=== PATIENT | male | born 1990 | race Caucasian/White ===

== ENCOUNTER 2018-08-24 10:25 | Emergency (ER) | payer BC, SELFPAY ==
[2018-08-24 11:37] LABS: Urine Blood NEGATIVE (NEG); Urine Glucose NEGATIVE (NEG); Urine Protein NEGATIVE (NEG); Urine Specific Gravity 1.025 (1.005-1.030)
--- NOTE | 2018-08-24 12:05 | RAD REPORT ---
EXAM DESCRIPTION: US - Abdomen Exam Limited - 08/24/2018 11:49 am CLINICAL HISTORY: ABD PAIN COMPARISON: ABDOMINAL EXAM COMPLETE dated 07/20/2014 FINDINGS: The gallbladder demonstrates no gallstones. No pericholecystic fluid or gallbladder wall t hickening. The common bile duct is normal measuring 3 mm. The liver demonstrates no findings of intrahepatic biliary dilatation. IMPRESSION: Unremarkable examination.
[2018-08-24] MEDS ORDERED: KETOROLAC 30 MG/ML INJ ONE (13:08)
[2018-08-24] MEDS ORDERED: NA CHLORIDE 0.9% 1,000 ML ONE (13:08)
[2018-08-24 13:18] LABS: Absolute Lymphocytes (CBC) 1.2 K/uL (0.7-4.9); Absolute Monocytes 0.8 K/uL (0.1-1.3); Absolute Neutrophil 2.4 K/uL (1.8-8.0); Basophils % 0.6 % (0-1.3); Eosinophils % 3.4 % (0-4.4); Hematocrit 44.4 % (39.6-49.0); Lymphocytes % 26.8 % (15.3-44.8); MCV 87.3 fL (80-100); MPV 8.9 fL (7.6-11.3); Monocytes % 16.8 % (3.3-12.3); RBC Red Blood Cell Count 5.09 M/uL (4.33-5.43)
[2018-08-24 13:25] LABS: Albumin 3.4 g/dL (3.4-5.0); Bilirubin Direct 0.1 mg/dL (0-0.2); Bilirubin Total 0.3 mg/dL (0.2-1.0); Potassium 4.2 mmol/L (3.5-5.1)
[2018-08-24] MEDS ORDERED: DICYCLOMINE HCL 10 MG CAP ONE (13:57)
[2018-08-24] MEDS ORDERED: PANTOPRAZOLE 40 MG INJ ONE (13:58)
[2018-08-24 14:07] LABS: Urine White Blood Cell Casts OK
[2018-08-24 14:08] LABS: Blood Morphology Comment NOT SEEN (NOT SEEN); Platelet Estimate ADEQ
--- NOTE | 2018-08-24 14:22 | ER ---
Nurse's Notes [facility] Name: Robbie Dc Age: 28 yrs Sex: Male : 1990 Arrival Date: 08/24/2018 Time: 10:30 Bed 23 Private MD: Diagnosis: Upper abdominal pain, unspecified;Diarrhea, unspecified Presentation: 08/24 10:43 Presenting complaint: Patient states: "We got back from [place] a couple weeks ago. A aj1 few of us have gotten really bad diarrhea, that's been going on for the past 3 days. I'm having severe stomach cramps." Reports epigastric pain that is worse after he eats. Reports fever, Tmax 101. Transition of care: patient was not received from another setting of care. Onset of symptoms was August 21, 2018. Risk Assessment: Do you want to hurt yourself or someone else? Patient reports no desire to harm self or others. Initial Sepsis Screen: Does the patient meet any 2 criteria? No. Patient's initial sepsis screen is negative. Does the patient have a suspected source of infection? No. Patient's initial sepsis screen is negative. Care prior to arrival: None. 10:43 Method Of Arrival: Ambulatory aj1 10:43 Acuity: SALLY 3 aj1 Triage Assessment: 10:45 General: Appears in no apparent distress. uncomfortable, Behavior is calm, cooperative, aj1 appropriate for age. Pain: Complains of pain in epigastric area Pain radiates to abdomen diffusely Pain currently is 3 out of 10 on a pain scale. at worst was 7 out of 10 on a pain scale. Neuro: Level of Consciousness is awake, alert, obeys commands. Cardiovascular: Patient's skin is warm and dry. Respiratory: Airway is patent Respiratory effort is even, unlabored, Respiratory pattern is regular, symmetrical. GI: Reports diarrhea, nausea, Patient currently denies vomiting. Historical: - Allergies: 10:45 No Known Allergies; aj1 - Home Meds: 10:45 Protonix Oral [Active]; Bentyl Oral [Active]; aj1 - PMHx: 10:45 None; aj1 - PSHx: 10:45 Appendectomy; aj1 - Immunization history:: Adult Immunizations unknown. - Social history:: Smoking status: Patient/guardian denies using tobacco. - Ebola Screening: : No symptoms or risks identified at this time. Screenin:00 Abuse screen: Denies threats or abuse. Denies injuries from another. Nutritional kr2 screening: No deficits noted. Tuberculosis screening: No symptoms or risk factors identified. Fall Risk None identified. Assessment: 12:45 General: Appears in no apparent distress. comfortable, Behavior is calm, cooperative, ss Reports fatigue for Denies fever, fatigue. Pain: Complains of pain in epigastric area Pain currently is 5 out of 10 on a pain scale. Neuro: Level of Consciousness is awake, alert, obeys commands, Oriented to person, place, time, situation. Cardiovascular: Heart tones S1 S2 present Capillary refill < 3 seconds is brisk in bilateral fingers Patient's skin is warm and dry. Respiratory: Airway is patent Respiratory effort is even, unlabored, Respiratory pattern is regular, symmetrical. GI: Bowel sounds present X 4 quads. Abd is soft and non tender X 4 quads. Reports diarrhea, since x 3 days. : No signs and/or symptoms were reported regarding the genitourinary system. EENT: Nares are clear Oral mucosa is moist. Derm: Skin is intact, is healthy with good turgor, Skin is dry, Skin is pink, warm \\T\\ dry. normal. 13:43 Reassessment: Patient appears in no apparent distress at this time. Patient and/or kr2 family updated on plan of care and expected duration. Pain level reassessed. Patient is alert, oriented x 3, equal unlabored respirations, skin warm/dry/pink. Complaining of abdominal cramping, provider at bedside. 14:06 Reassessment: Patient appears in no apparent distress at this time. Patient and/or kr2 family updated on plan of care and expected duration. Pain level reassessed. Patient is alert, oriented x 3, equal unlabored respirations, skin warm/dry/pink. Patient states symptoms have improved. Vital Signs: 10:45 BP 122 / 74; Pulse 71; Resp 18; Temp 99.2(TE); Pulse Ox 100% on R/A; Weight 97.52 kg aj1 (R); Height 5 ft. 11 in. (180.34 cm) (R); Pain 3/10; 14:00 BP 120 / 70; Pulse 70; Resp 17; Pulse Ox 99% on R/A; kr2 10:45 Body Mass Index 29.99 (97.52 kg, 180.34 cm) aj1 ED Course: 10:30 Patient arrived in ED. as 10:44 Triage completed. aj1 10:45 Arm band placed on Patient placed in waiting room, Patient notified of wait time. aj1 11:24 Mellisa Sellers [facility]-C [facility]. kb 11:24 Srikanth Siddiqi MD is Attending Physician. kb 11:50 US Abdomen Limited In Process Unspecified. EDMS 13:00 Patient has correct armband on for positive identification. Bed in low position. Call kr2 light in reach. Side rails up X 1. Pulse ox on. NIBP on. Door closed. Head of bed elevated. 13:43 Catalina Reza, RN is Primary Nurse. kr2 14:38 No provider procedures requiring assistance completed. IV discontinued, intact, kr2 bleeding controlled, No redness/swelling at site. Pressure dressing applied. Administered Medications: 13:05 Drug: TORadol 30 mg Route: IVP; Site: right antecubital; kr2 13:42 Follow up: Response: No adverse reaction; Pain is decreased kr2 13:06 Drug: NS 0.9% 1000 ml Route: IV; Rate: 1000 ml; Site: right antecubital; kr2 14:30 Follow up: Response: No adverse reaction; IV Status: Completed infusion kr2 13:54 Drug: ProTONIX 40 mg Route: IVP; Site: right antecubital; kr2 14:36 Follow up: Response: No adverse reaction; Pain is decreased kr2 13:55 Drug: Bentyl 20 mg Route: PO; kr2 14:37 Follow up: Response: No adverse reaction; Pain is decreased kr2 Outcome: 14:22 Discharge ordered by . kb 14:38 Discharged to home ambulatory. kr2 14:38 Condition: good 14:38 Discharge instructions given to patient, Instructed on discharge instructions, follow up and referral plans. medication usage, Demonstrated understanding of instructions, follow-up care, medications, Prescriptions given X 1. 14:41 Patient left the ED. kr2 Signatures: Dispatcher [employer] EDMS Mellisa Sellers FNP-C FNP-Ckb Johnson, Angela, RN RN aj1 Maritza Bustos Shelby, RN RN Catalina Reza RN RN kr2
--- NOTE | 2018-08-24 14:22 | EDPHYS ---
Physician Documentation [facility] Name: Robbie Dc Age: 28 yrs Sex: Male : 1990 Arrival Date: 08/24/2018 Time: 10:30 Bed 23 Private MD: ED Physician Srikanth Siddiqi HPI: 08/24 14:20 This 28 yrs old Male presents to ER via Ambulatory with complaints of kb Abdominal Pain. 14:20 The patient presents with abdominal pain in the epigastric area. Onset: The kb symptoms/episode began/occurred 4 day(s) ago. The symptoms do not radiate. Associated signs and symptoms: Pertinent positives: diarrhea, Pertinent negatives: nausea and vomiting. The symptoms are described as crampy. Modifying factors: The symptoms are alleviated by nothing, the symptoms are aggravated by nothing. Severity of pain: At its worst the pain was moderate in the emergency department the pain is unchanged. The patient has not experienced similar symptoms in the past. The patient has not recently seen a physician. Pt states he got back from [place] 6 days ago, started having diarrhea and abd pain for 4 days.. Historical: - Allergies: 10:45 No Known Allergies; aj1 - Home Meds: 10:45 Protonix Oral [Active]; Bentyl Oral [Active]; aj1 - PMHx: 10:45 None; aj1 - PSHx: 10:45 Appendectomy; aj1 - Immunization history:: Adult Immunizations unknown. - Social history:: Smoking status: Patient/guardian denies using tobacco. - Ebola Screening: : No symptoms or risks identified at this time. ROS: 14:19 Constitutional: Negative for fever, chills, and weight loss, Cardiovascular: Negative kb for chest pain, palpitations, and edema, Respiratory: Negative for shortness of breath, cough, wheezing, and pleuritic chest pain, Back: Negative for injury and pain, : Negative for injury, bleeding, discharge, and swelling, MS/Extremity: Negative for injury and deformity, Skin: Negative for injury, rash, and discoloration, Neuro: Negative for headache, weakness, numbness, tingling, and seizure. 14:19 Abdomen/GI: Positive for abdominal pain, diarrhea, Negative for nausea, vomiting, constipation. Exam: 14:18 Constitutional: This is a well developed, well nourished patient who is awake, alert, kb and in no acute distress. Head/Face: Normocephalic, atraumatic. Chest/axilla: Normal chest wall appearance and motion. Nontender with no deformity. No lesions are appreciated. Cardiovascular: Regular rate and rhythm with a normal S1 and S2. No gallops, murmurs, or rubs. Normal PMI, no JVD. No pulse deficits. Respiratory: Lungs have equal breath sounds bilaterally, clear to auscultation and percussion. No rales, rhonchi or wheezes noted. No increased work of breathing, no retractions or nasal flaring. Back: No spinal tenderness. No costovertebral tenderness. Full range of motion. Skin: Warm, dry with normal turgor. Normal color with no rashes, no lesions, and no evidence of cellulitis. MS/ Extremity: Pulses equal, no cyanosis. Neurovascular intact. Full, normal range of motion. Neuro: Awake and alert, GCS 15, oriented to person, place, time, and situation. Cranial nerves II-XII grossly intact. Motor strength 5/5 in all extremities. Sensory grossly intact. Cerebellar exam normal. Normal gait. 14:18 Abdomen/GI: Inspection: abdomen appears normal, Bowel sounds: normal, in all quadrants, Palpation: soft, in all quadrants, mild abdominal tenderness, in the right upper quadrant. Vital Signs: 10:45 BP 122 / 74; Pulse 71; Resp 18; Temp 99.2(TE); Pulse Ox 100% on R/A; Weight 97.52 kg aj1 (R); Height 5 ft. 11 in. (180.34 cm) (R); Pain 3/10; 14:00 BP 120 / 70; Pulse 70; Resp 17; Pulse Ox 99% on R/A; kr2 10:45 Body Mass Index 29.99 (97.52 kg, 180.34 cm) aj1 MDM: 12:36 Patient medically screened. kb 14:18 Data reviewed: vital signs, nurses notes. Data interpreted: Pulse oximetry: on room air kb is 100 %. Interpretation: normal. Counseling: I had a detailed discussion with the patient and/or guardian regarding: the historical points, exam findings, and any diagnostic results supporting the discharge/admit diagnosis, lab results, radiology results, the need for outpatient follow up, a family practitioner, to return to the emergency department if symptoms worsen or persist or if there are any questions or concerns that arise at home. 08/24 11:27 Order name: Urine Dipstick--Ancillary (enter results); Complete Time: 11:39 bd 08/24 12:43 Order name: Basic Metabolic Panel; Complete Time: 13:30 kb 08/24 12:43 Order name: CBC with Diff; Complete Time: 14:14 kb 08/24 12:43 Order name: Hepatic Function; Complete Time: 13:30 kb 08/24 12:43 Order name: Lipase; Complete Time: 13:30 kb 08/24 13:29 Order name: CBC Smear Scan; Complete Time: 14:14 EDMS 08/24 11:24 Order name: US Abdomen Limited; Complete Time: 12:06 kb 08/24 12:43 Order name: IV Saline Lock; Complete Time: 13:08 kb 08/24 12:43 Order name: Labs collected and sent; Complete Time: 13:08 kb Administered Medications: 13:05 Drug: TORadol 30 mg Route: IVP; Site: right antecubital; kr2 13:42 Follow up: Response: No adverse reaction; Pain is decreased kr2 13:06 Drug: NS 0.9% 1000 ml Route: IV; Rate: 1000 ml; Site: right antecubital; kr2 14:30 Follow up: Response: No adverse reaction; IV Status: Completed infusion kr2 13:54 Drug: ProTONIX 40 mg Route: IVP; Site: right antecubital; kr2 14:36 Follow up: Response: No adverse reaction; Pain is decreased kr2 13:55 Drug: Bentyl 20 mg Route: PO; kr2 14:37 Follow up: Response: No adverse reaction; Pain is decreased kr2 Disposition: 18:19 Co-signature as Attending Physician, Srikanth Siddiqi MD. Disposition: 08/24/18 14:22 Discharged to Home. Impression: Upper abdominal pain, unspecified, Diarrhea, unspecified. - Condition is Stable. - Discharge Instructions: Abdominal Pain, Adult, [id number], Diarrhea, Adult, [id number]. - Prescriptions for Bentyl 20 mg Oral Tablet - take 1 tablet by ORAL route every 6 hours As needed; 20 tablet. - Medication Reconciliation Form, Thank You Letter, Antibiotic Education, Prescription Opioid Use, Work release form form. - Follow up: Emergency Department; When: As needed; Reason: Worsening of condition. Follow up: Private Physician; When: 2 - 3 days; Reason: Recheck today's complaints, Continuance of care, Re-evaluation by your physician. Signatures: Dispatcher [employer] EDMS Mellisa Sellers, OFFICE RN-C OFFICE RN-Kira Dobbins, RN RN aj1 Srikanth Siddiqi MD MD gs Catalina Reza RN RN kr2 Corrections: (The following items were deleted from the chart) 14:41 14:22 08/24/2018 14:22 Discharged to Home. Impression: Upper abdominal pain, kr2 unspecified; Diarrhea, unspecified. Condition is Stable. Forms are Medication Reconciliation Form, Thank You Letter, Antibiotic Education, Prescription Opioid Use. Follow up: Emergency Department; When: As needed; Reason: Worsening of condition. Follow up: Private Physician; When: 2 - 3 days; Reason: Recheck today's complaints, Continuance of care, Re-evaluation by your physician. kb
== END 2018-08-24 14:41 | disposition home or self-care (01) ==
LOC: ER 10:25
DX: R19.7 Diarrhea, unspecified (principal)
CPT/HCPCS: 36415; 76705; 80048; 80076; 81003; 83690; 85025; 96361; 96374; 96375; 99284; C9113; J7030